=== PATIENT | female | born 1980 | race Caucasian/White ===

== ENCOUNTER 2017-08-02 14:29 | Emergency (ER) | payer MEDICAID ==
[2017-08-02 14:38] VITALS: BP 137/72
[2017-08-02] MEDS ORDERED: Clindamycin CAP* 150 MG PO ONE (15:00)
[2017-08-02] MEDS ORDERED: Ibuprofen TAB* 600 MG PO ONE (15:00)
--- NOTE | 2017-08-02 15:00 | UC ---
Dental HPI - HPI Summary HPI Summary: Upper left lolar broke a while back now has dental pain has not made a dental appointment yet, pain and swelling in left side of face - History of Current Complaint Hx Obtained From: Patient Hx Last Menstrual Period: 07/31/17 ?: No Onset/Duration: Gradual Onset, Lasting Weeks, Worse Since - today Severity: Severe Pain Intensity: 8 Pain Scale Used: 0-10 Numeric Related History: Previous Dental Care on Same Tooth <Jacquie Ramirez - Last Filed: 08/02/17 16:20> <Barbara Bower - Last Filed: 08/03/17 16:33> - History of Current Complaint Chief Complaint: UCDentalProblem Stated Complaint: TOOTH ACHE Time Seen by Provider: 08/02/17 14:56 - Allergies/Home Medications Allergies/Adverse Reactions: Allergies Allergy/AdvReac Type Severity Reaction Status Date / Time Sulfa Drugs Allergy Intermediate Rash Verified 08/02/17 14:34 Tramadol Allergy Intermediate Vomiting Verified 08/02/17 14:34 Home Medications: Home Medications Methadone TAB* [Dolophine TAB*] 145 mg PO DAILY 08/02/17 [History Confirmed 04/11] PMH/Surg Hx/FS Hx/Imm Hx Previously Healthy: No - in opiate recovery - Surgical History Surgical History: Yes Surgery Procedure, Year, and Place: RUPTURED EAR DRUM (grafting no implant),. right shoulder surgery -. 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 Smoking Status (MU): Former Smoker Type: Cigarettes Amount Used/How Often: 1/2 PPD Length of Time of Smoking/Using Tobacco: 10YRS Have You Smoked in the Last Year: Yes Household Exposure Type: Cigarettes - Immunization History Most Recent Influenza Vaccination: unknown Most Recent Tetanus Shot: WITHIN LAST 5 YRS Most Recent Pneumonia Vaccination: never <Jacquie Ramirez - Last Filed: 08/02/17 16:20> Review of Systems Constitutional: Negative Skin: Negative Eyes: Negative ENT: Dental Pain Respiratory: Negative Cardiovascular: Negative Gastrointestinal: Negative Genitourinary: Negative Motor: Negative Neurovascular: Negative Musculoskeletal: Negative Neurological: Negative Psychological: Negative Is Patient Immunocompromised?: No All Other Systems Reviewed And Are Negative: Yes <Jacquie Ramirez - Last Filed: 08/02/17 16:20> Physical Exam Triage Information Reviewed: Yes Appearance: Well-Appearing, No Pain Distress, Well-Nourished Vital Signs: Initial Vital Signs Temp 97.3 F 08/02/17 14:36 Pulse 83 08/02/17 14:36 Resp 18 08/02/17 14:36 BP 137/72 08/02/17 14:36 Pulse Ox 100 08/02/17 14:36 Vital Signs Reviewed: Yes Eye Exam: Normal Eyes: Positive: Conjunctiva Clear ENT Exam: Normal ENT: Positive: Normal ENT inspection, Hearing grossly normal, Pharynx normal, Dental tenderness, Uvula midline. Negative: Nasal congestion, Nasal drainage, Tonsillar swelling, Tonsillar exudate, Trismus, Hoarse voice, Sinus tenderness Dental Exam: Normal Dental: Positive: Percussion Tenderness @, Dental Fracture @, Abscess @ - left upper gum Neck exam: Normal Neck: Positive: Supple, Nontender, No Lymphadenopathy Respiratory Exam: Normal Respiratory: Positive: Chest non-tender, No respiratory distress, No accessory muscle use Cardiovascular Exam: Normal Cardiovascular: Positive: RRR, Pulses Normal, Brisk Capillary Refill Musculoskeletal Exam: Normal Musculoskeletal: Positive: Strength Intact, ROM Intact, No Edema Neurological Exam: Normal Neurological: Positive: Alert, Muscle Tone Normal Psychological Exam: Normal Skin Exam: Normal <Jacquie Ramirez - Last Filed: 08/02/17 16:20> Vital Signs: Initial Vital Signs Temp 97.3 F 08/02/17 14:36 Pulse 83 08/02/17 14:36 Resp 18 08/02/17 14:36 BP 137/72 08/02/17 14:36 Pulse Ox 100 08/02/17 14:36 <Barbara Bower - Last Filed: 08/03/17 16:33> Dental Complaint Course/Dx - Course Course Of Treatment: clindamycin, ibuprofen, topical pain meds, follow with dentist early in the next week - Differential Dx/Diagnosis Provider Diagnoses: Fractured tooth with dental abscess <Jacquie Ramirez - Last Filed: 08/02/17 16:20> Discharge <Jacquie Ramirez - Last Filed: 08/02/17 16:20> <Barbara Bower - Last Filed: 08/03/17 16:33> - Discharge Plan Condition: Stable Disposition: HOME Prescriptions: Clindamycin Cap(NF) [Clindamycin Cap 300 mg Cap(NF)] 300 mg PO Q6H #39 cap Ibuprofen TAB* [Motrin TAB* 600 MG] 600 mg PO Q6H PRN #40 tab PRN Reason: pain Patient Education Materials: Dental Abscess (ED), Toothache (ED) Forms: *Work Release Referrals: [facility] [place] [facility] [Outside] - If Needed Additional Instructions: Follow with dentist BRADLEY! We have given you some dental lists that may help you find a dentist Attestations Provider Attestation: I did not provide direct contact or participate on the care of this patient's visit to the urgent care center. I was available for consultation. <Barbara Bower - Last Filed: 08/03/17 16:33>
== END 2017-08-02 15:16 | disposition home or self-care (01) ==
LOC: UCEAST 14:29
DX: S02.5XXA Fracture of tooth (traumatic), initial encounter for closed fracture (principal); X58.XXXA Exposure to other specified factors, initial encounter; Y93.9 Activity, unspecified; Y92.9 Unspecified place or not applicable; K04.7 Periapical abscess without sinus; Z88.5 Allergy status to narcotic agent; Z88.2 Allergy status to sulfonamides; Z87.891 Personal history of nicotine dependence
CPT/HCPCS: 99212; A9270-GY; G0463

== ENCOUNTER 2018-08-02 10:32 | Emergency (ER) | payer OTHER ==
[2018-08-02 11:56] VITALS: BP 130/79
--- NOTE | 2018-08-02 13:05 | UC ---
Eye Complaint HPI - HPI Summary HPI Summary: Patient is a 38-year-old female presenting to the ED with 4 days of worsening upper eye erythema after having a scratch near her eyebrow. She states over the past 4 days she developed worsening redness and today some swelling to the upper lid with some slight swelling just above the left maxilla. Denies any visual changes or disturbances. Denies any symptoms of eye entrapment. She states she is able to look from side to side without discomfort. Denies any fevers, sweats, chills. The eye remains open without drainage. - History of Current Complaint Chief Complaint: UCSkin Stated Complaint: L EYE COMPLAINT Time Seen by Provider: 08/02/18 12:08 Hx Obtained From: Patient Hx Last Menstrual Period: implanon ?: No Onset/Duration: Sudden Onset Timing: Constant Severity Initially: Moderate Severity Currently: Moderate Pain Intensity: 7 Pain Scale Used: 0-10 Numeric Location of Injury: Periorbital Aggravating Factor(s): Nothing Alleviating Factor(s): Nothing Associated Signs And Symptoms: Positive: Negative - Risk Factors Penetrating Injury Risk Factor: Negative - Allergies/Home Medications Allergies/Adverse Reactions: Allergies Allergy/AdvReac Type Severity Reaction Status Date / Time Sulfa (Sulfonamide Allergy Rash Verified 08/02/18 10:35 Antibiotics) tramadol Allergy Vomiting Verified 08/02/18 10:35 Home Medications: Home Medications Buprenorphine TAB* [Subutex TAB*] 1 tab PO DAILY 08/02/18 [History Confirmed 04/12] Gabapentin 1 powder PO DAILY 08/02/18 [History Confirmed 08/02/18] clonazePAM [Clonazepam] 1 tab PO DAILY 08/02/18 [History Confirmed 08/02/18] PMH/Surg Hx/FS Hx/Imm Hx Previously Healthy: Yes - Surgical History Surgical History: Yes Surgery Procedure, Year, and Place: RUPTURED EAR DRUM (grafting no implant),. right shoulder surgery -. left salpinectomy 04/25/14 - Family History Known Family History: Positive: None - Social History Occupation: Employed Full-time Lives: With Family Alcohol Use: None Substance Use Type: Cocaine, Heroin Substance Use Comment - Amount & Last Used: sober x 2 years Smoking Status (MU): Former Smoker Type: Cigarettes Amount Used/How Often: 1/2 PPD Length of Time of Smoking/Using Tobacco: 10YRS Have You Smoked in the Last Year: Yes Household Exposure Type: Cigarettes - Immunization History Most Recent Influenza Vaccination: unknown Most Recent Tetanus Shot: WITHIN LAST 5 YRS Most Recent Pneumonia Vaccination: never Review of Systems All Other Systems Reviewed And Are Negative: Yes Constitutional: Positive: Negative Eyes: Positive: Other - periorbital swelling. Negative: Blurred Vision, Diplopia, Drainage, Eye Redness, Photophobia Respiratory: Positive: Negative Cardiovascular: Positive: Negative Gastrointestinal: Positive: Negative Motor: Positive: Negative Neurological: Positive: Negative Psychological: Positive: Negative Is Patient Immunocompromised?: Yes Physical Exam Triage Information Reviewed: Yes Appearance: Well-Appearing, Well-Nourished Vital Signs: Initial Vital Signs Temp 98 F 08/02/18 11:53 Pulse 110 08/02/18 11:53 Resp 20 08/02/18 11:53 BP 130/79 08/02/18 11:53 Pulse Ox 100 08/02/18 11:53 Vital Signs Reviewed: Yes Eye Exam: Normal Eyes: Positive: Other: - periorbital swelling. Negative: Conjunctiva Clear, Conjunctiva Inflamed Neck exam: Normal Neck: Positive: Supple Respiratory Exam: Normal Respiratory: Positive: Chest non-tender, Lungs clear Cardiovascular Exam: Normal Cardiovascular: Positive: RRR Musculoskeletal Exam: Normal Musculoskeletal: Positive: Strength Intact Psychological: Positive: Normal Response To Family Skin Exam: Normal Eye Complaint Course/Dx - Course Course Of Treatment: No on physical examination, there is no evidence of orbital compartment syndrome, hyphema, subconjunctival hemorrhage, evidence of increased intraorbital pressure or evidence of abrasions. Due to the unilateral eyelid swelling and erythema with a recent local lesion, preseptal cellulitis versus cellulitis is expected or likely. There is no eye pain or tenderness, no pain with eye movements, no proptosis is noted. There is no evidence of diplopia or ophthalmoplegia, vision impairment, evidence of chemosis. Patient denies any fevers and she appears otherwise well. At this time I believe she is an appropriate candidate for outpatient oral antibiotics and she understands return precautions if symptoms worsen.Patient remains able to see well, denying any visual changes or disturbances. There is a small 0.5 cm scratch to the left eyebrow with surrounding erythema and swelling. The eye remains open without drainage or erythema to the lower lid. Discussed with the patient at length regarding strict return precautions if any symptoms change or worsen, specifically worsening swelling, the inability to move the eye up and down or left to right, visual changes or she develops any fevers, sweats, chills. She is prescribed clindamycin 450 mg 3 times daily 7 days. She is also encouraged ibuprofen as well as ice packs to the area. - Differential Dx/Diagnosis Differential Diagnosis/HQI/PQRI: Conjunctivitis, Periorbital Cellulitis, Orbital Cellulitis Provider Diagnosis: Periorbital cellulitis of left eye Discharge - Sign-Out/Discharge Documenting (check all that apply): Patient Departure All imaging exams completed and their final reports reviewed: No Studies - Discharge Plan Condition: Stable Disposition: HOME Prescriptions: Clindamycin Cap(NF) [Clindamycin Cap 300 mg Cap(NF)] 300 mg PO Q6H #28 cap Patient Education Materials: Cellulitis (ED) Referrals: No Primary Care Phys,NOPCP [Primary Care Provider] - Additional Instructions: As discussed, return to the ED if he develop fevers, sweats, chills, worsening redness around the eye, pain behind her around the eye or if you are unable to move the eyes from side to side or you have difficulty seeing. Clindamycin 4 times daily 7 days Do not discontinue this medication, even if he began to feel better Ibuprofen 600mg 3 times daily for discomfort and swelling Ice to the area may help with swelling - Billing Disposition and Condition Condition: STABLE Disposition: Home
== END 2018-08-02 12:20 | disposition home or self-care (01) ==
LOC: UCEAST 10:32
DX: L03.213 Periorbital cellulitis (principal); Z88.5 Allergy status to narcotic agent; Z87.891 Personal history of nicotine dependence
CPT/HCPCS: 99212; G0463

== ENCOUNTER 2019-06-09 09:55 | Emergency (ER) | payer OTHER ==
[2019-06-09] MEDS ORDERED: NS 0.9% 1000 ML** 1,000 ML IV ONE (10:24)
[2019-06-09] MEDS ORDERED: Clindamycin 600 MG/D5W BAG(*) 600 MG/50 ML BAG IV ONE (10:30)
[2019-06-09 10:57] LABS: ABS Basophils 0.1 10^3/ul (0-0.2); ABS Eosinophils 0.3 10^3/ul (0-0.6); ABS Lymphocytes 3.3 10^3/ul (1.0-4.8); ABS Monocytes 0.7 10^3/ul (0-0.8); ABS Neutrophils 5.6 10^3/ul (1.5-7.7); Eosinophil % 2.9 %; Hematocrit 41 % (35-47); Hemoglobin 13.8 g/dL (12.0-16.0); Lymphocyte % 33.2 %; Mean Corpuscular HGB Conc 34 g/dL (31-36); Mean Corpuscular Hemoglobin 30 pg (27-31); Mean Corpuscular Volume 89 fL (80-97); Mean Platelet Volume 8.8 fL (7.4-10.4); Platelet Count 218 10^3/uL (150-450); Red Blood Count 4.63 10^6 /uL (3.70-4.87); Red Cell Distribution Width 15 % (10-15); White Blood Count 9.9 10^3/uL (3.5-10.8)
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
[2019-06-09 11:15] LABS: Albumin 4.6 g/dL (3.2-5.2); Albumin/Globulin Ratio 1.5 (1-3); BUN/Creatinine Ratio 23.3 (8-20); C Reactive Protein 48.12 mg/L (<8.01); Calcium 9.9 mg/dL (8.6-10.3); EGFR African American 136.1 (>60); EGFR Non-African American 112.5 (>60); Total Bilirubin 0.5 mg/dL (0.2-1.0); Total Protein 7.6 g/dL (6.4-8.9)
[2019-06-09] MEDS ORDERED: Iohexol 300* (CONTRAST) 10 ML SDV IV ONE (11:19)
[2019-06-09] MEDS ORDERED: Ibuprofen TAB* 800 MG PO ONE (11:54)
[2019-06-09 14:02] VITALS: BP 107/74
== END 2019-06-09 13:52 | disposition home or self-care (01) ==
LOC: ED 09:55
DX: L03.211 Cellulitis of face (principal); K05.6 Periodontal disease, unspecified; R59.0 Localized enlarged lymph nodes; Z88.5 Allergy status to narcotic agent; Z88.2 Allergy status to sulfonamides; Z87.891 Personal history of nicotine dependence
CPT/HCPCS: 36415; 70487; 80053; 85025; 86140; 87070; 87077; 87186; 87205; 96361; 96365; 99283; A9270-GY; Q9967

== ENCOUNTER 2020-07-08 14:14 | Observation (INO) ==
[2020-07-08 15:59] LABS: ABS Eosinophils 0.3 10^3/ul (0-0.6); ABS Lymphocytes 1.6 10^3/ul (1.0-4.8); ABS Monocytes 0.6 10^3/ul (0-0.8); ABS Neutrophils 2.3 10^3/ul (1.5-7.7); Eosinophil % 6.3 %; Hematocrit 38 % (35-47); Lymphocyte % 34.1 %; Mean Corpuscular HGB Conc 35 g/dL (31-36); Mean Corpuscular Hemoglobin 30 pg (27-31); Mean Corpuscular Volume 87 fL (80-97); Mean Platelet Volume 8.2 fL (7.4-10.4); Platelet Count 219 10^3/uL (150-450); Red Blood Count 4.33 10^6 /uL (3.70-4.87); Red Cell Distribution Width 15 % (10-15); White Blood Count 4.8 10^3/uL (3.5-10.8)
[2020-07-08 16:18] LABS: Albumin 3.9 g/dL (3.2-5.2); Anion Gap 7 mmol/L (2-11); CO2 Carbon Dioxide 26 mmol/L (22-32); Chloride 105 mmol/L (101-111); Potassium 3.8 mmol/L (3.5-5.0); Sodium 138 mmol/L (135-145)
[2020-07-08 16:22] LABS: Acetaminophen < 15 mcg/mL; Alcohol, S < 10 mg/dL (<10); Salicylate < 2.50 mg/dL (<30)
[2020-07-08 16:24] LABS: ALT 18 U/L (7-52); AST 24 U/L (13-39); Albumin/Globulin Ratio 1.5 (1-3); Alkaline Phosphatase 69 U/L (34-104); BUN/Creatinine Ratio 20.3 (8-20); Blood Urea Nitrogen 14 mg/dL (6-24); EGFR African American 115.2 (>60); EGFR Non-African American 95.2 (>60); Globulin 2.6 g/dL (2-4); Glucose 127 mg/dL (70-100); Total Protein 6.5 g/dL (6.4-8.9)
[2020-07-08] MEDS ORDERED: Naloxone 0.4 mg VIAL 0.4 mg/ml 1 ml VIAL IV PUSH PRN (20:01)
[2020-07-08] MEDS ORDERED: Ondansetron 4 mg VIAL 2 MG/ML 2 ml VIAL IV PRN (20:01)
[2020-07-08] MEDS ORDERED: NS 0.9% 1000 ml BAG 1,000 ML IV SCH (20:15)
[2020-07-08 20:43] LABS: TSH Ultra Thyroid Stim Horm 0.55 mcIU/mL (0.34-5.60)
[2020-07-08] MEDS ORDERED: Albuterol HFA INHALER 8 gm MDI INH PRN (22:44)
[2020-07-09 07:11] LABS: ABS Basophils 0.1 10^3/ul (0-0.2); ABS Eosinophils 0.3 10^3/ul (0-0.6); ABS Lymphocytes 2.2 10^3/ul (1.0-4.8); ABS Monocytes 0.4 10^3/ul (0-0.8); ABS Neutrophils 1.5 10^3/ul (1.5-7.7); Eosinophil % 7.6 %; Hematocrit 39 % (35-47); Hemoglobin 13.2 g/dL (12.0-16.0); Mean Corpuscular HGB Conc 34 g/dL (31-36); Mean Corpuscular Hemoglobin 30 pg (27-31); Mean Corpuscular Volume 88 fL (80-97); Mean Platelet Volume 8.8 fL (7.4-10.4); Platelet Count 230 10^3/uL (150-450); Red Blood Count 4.42 10^6 /uL (3.70-4.87); Red Cell Distribution Width 15 % (10-15); White Blood Count 4.5 10^3/uL (3.5-10.8)
[2020-07-09 07:33] LABS: BUN/Creatinine Ratio 14.9 (8-20); Calcium 8.5 mg/dL (8.6-10.3); EGFR African American 119.2 (>60); EGFR Non-African American 98.5 (>60); Potassium 3.5 mmol/L (3.5-5.0)
[2020-07-09] MEDS ORDERED: DULoxetine DR 60 mg CAP PO SCH ×2 (09:00)
[2020-07-09 10:13] VITALS: BP 113/53
== END 2020-07-09 11:30 | disposition home or self-care (01) ==
LOC: ED 14:14 → MED 14:14 → ED 22:18
PROVIDERS: ADMIT Internal Medicine; ATTEND Internal Medicine

== ENCOUNTER 2024-06-01 19:38 | Observation (INO) ==
[2024-06-02 01:23] LABS: ABS Basophils 0.1 10^3/uL (0.0-0.1); ABS Lymphocytes 1.8 10^3/uL (1.0-4.8); ABS Monocytes 0.7 10^3/uL (0.0-0.9); ABS Neutrophils 8.9 10^3/uL (1.5-7.6); Eosinophil % 0.1 %; Hematocrit 34.6 % (35-45); Hemoglobin 11.5 g/dL (11.5-14.3); Lymphocyte % 15.7 %; Mean Corpuscular Hemoglobin 30.2 pg (27-33); Mean Corpuscular Hgb Conc 33.2 g/dL (31-36); Mean Corpuscular Volume 90.9 fL (80-97); Mean Platelet Volume 8.6 fL (7.5-11.2); Platelet Count 249 10^3/uL (150-450); Red Blood Count 3.81 10^6/uL (3.63-4.92); Red Cell Distribution Width 13.4 % (12-17); White Blood Count 11.3 10^3/uL (3.8-11.8)
[2024-06-02 01:48] LABS: Albumin 3.8 g/dL (3.2-5.2); Albumin/Globulin Ratio 1.3 (1-3); C Reactive Protein 75.67 mg/L (<8.01); Calcium 8.8 mg/dL (8.6-10.3); Creatinine, Serum 0.64 mg/dL (0.51-0.95); Potassium 4.3 mmol/L (3.5-5.0); Total Bilirubin 0.2 mg/dL (0.2-1.0); Total Protein 6.8 g/dL (6.4-8.9); eGFR CKD-EPI 113.1 (>60)
[2024-06-02] MEDS: Cefepime 2 GM in Dextrose 2 GM/50 ML BAG IV ONE (01:52)
[2024-06-02] MEDS: NS 0.9% 1000 ml BAG 1,000 ML IV ONE (01:58)
[2024-06-02] MEDS ORDERED: Vancomycin per Pharmacy 1 EA NOTE FOLLOW UP SCH (02:00)
[2024-06-02] MEDS: Vancomycin 1,250 MG in NS 0.9% 250 ml 250 ML IVPB ONE (03:11)
[2024-06-02] MEDS: DULoxetine DR 60 mg CAP PO SCH (08:15)
[2024-06-02] MEDS: Methadone ORALSYR CONC LIQ 10 MG/ML PO ONE (08:15)
[2024-06-02] MEDS: Vancomycin 1,250 MG in NS 0.9% 250 ml 250 ML IVPB SCH (08:50)
[2024-06-02] MEDS ORDERED: cefTRIAXone 1 gm/50 mL D5W 1 GM/50 ML BAG IV SCH (10:00)
[2024-06-02] MEDS: cefTRIAXone 1 gm/50 mL D5W 1 GM/50 ML BAG IV SCH (11:06)
[2024-06-03] MEDS ORDERED: COWS Protocol Daily Order Reminder FOLLOW UP SCH (03:00)
[2024-06-03 09:41] LABS: ABS Basophils 0.1 10^3/uL (0.0-0.1); ABS Eosinophils 0.2 10^3/uL (0.0-0.5); ABS Lymphocytes 2.2 10^3/uL (1.0-4.8); ABS Monocytes 0.3 10^3/uL (0.0-0.9); ABS Neutrophils 1.5 10^3/uL (1.5-7.6); ABS Nucleated RBC 0.01 10^3/ul; Eosinophil % 4.1 %; Hematocrit 32.8 % (35-45); Hemoglobin 11.2 g/dL (11.5-14.3); Lymphocyte % 51.3 %; Mean Corpuscular Hgb Conc 34.1 g/dL (31-36); Mean Corpuscular Volume 90.9 fL (80-97); Mean Platelet Volume 8.8 fL (7.5-11.2); Nucleated Red Blood Cells % 0.1 %/100WBC (0.0-0.8); Platelet Count 230 10^3/uL (150-450); Red Blood Count 3.61 10^6/uL (3.63-4.92); Red Cell Distribution Width 13.6 % (12-17); White Blood Count 4.2 10^3/uL (3.8-11.8)
[2024-06-03 09:49] LABS: Calcium 8.5 mg/dL (8.6-10.3); Creatinine, Serum 0.63 mg/dL (0.51-0.95); Potassium 3.9 mmol/L (3.5-5.0); eGFR CKD-EPI 113.5 (>60)
[2024-06-03 09:56] LABS: C Reactive Protein 50.12 mg/L (<8.01); Vancomycin Trough 12.8 mcg/mL
[2024-06-03] MEDS: Methadone ORALSYR CONC LIQ 10 MG/ML PO ONE (10:30)
[2024-06-03] MEDS: Vancomycin Trough Check NOTE FOLLOW UP ONE (12:05)
[2024-06-03 13:30] VITALS: BP 116/57
[2024-06-03] MEDS ORDERED: Vancomycin 1000 MG in NS 0.9% 250 ML IVPB SCH (18:00)
[2024-06-05] MEDS ORDERED: Vancomycin Trough Check NOTE FOLLOW UP ONE (09:30)
== END 2024-06-03 15:15 | disposition home or self-care (01) ==
LOC: ED 19:38 → EDHOLD 19:38 → SUATTDRO 06-02 01:53 → MED 06-02 09:37
PROVIDERS: ADMIT Student in an Organized Health Care Education/Training Program; ATTEND Internal Medicine